=== PATIENT | male | born 1985 | race Caucasian/White ===

== ENCOUNTER 2020-07-25 18:47 | Emergency (ER) | payer BC ==
[~2020-07-25] VITALS: Ht 167.6 cm; Wt 81.6 kg
[2020-07-25 19:00] VITALS: Ht 167.6 cm; Wt 81.6 kg
[2020-07-25 22:42] LABS: CALCIUM 8.9 mg/dL (8.5-10.1); CARBON DIOXIDE 26.2 mmol/L (21-32); CHLORIDE SERUM 101 mmol/L (98-107); CREATININE SERUM 0.6 mg/dL (0.7-1.3); GFR1 > 60 mL/min; GLUCOSE SERUM 98 mg/dL (74-106); POTASSIUM SERUM 4.2 mmol/L (3.5-5.1); SODIUM SERUM 138 mmol/L (136-145)
[2020-07-25 22:43] LABS: BASOPHIL % 1.1 % (0-2); PLATELET COUNT 147 x10^3mcL (130-400); RED CELL DISTRIBUTION WIDTH 14.3 % (11.5-14.5)
[2020-07-25 22:47] LABS: ALKALINE PHOSPHATASE 169 U/L (46-116); ALT/SGPT 114 U/L (16-63); AST/SGOT 206 U/L (15-37); BILIRUBIN TOTAL 0.81 mg/dL (0.20-1.00); LIPASE 75 IU/L (73-393)
[2020-07-25 22:54] LABS: TOTAL PROTEIN, SERUM 8.9 g/dL (6.4-8.2)
[2020-07-26 00:23] VITALS: BP 110/64
== END 2020-07-26 00:23 | disposition home or self-care (01) ==
LOC: ED 18:47
PROVIDERS: Emergency Medicine
DX: R07.89 Other chest pain (principal)
CPT/HCPCS: 83880